=== PATIENT | female | born 1955 | race Hispanic/Latino ===

== ENCOUNTER 2022-04-27 11:40 | Inpatient (IN) | payer MEDICARE ==
[2022-04-27 12:27] LABS: #Eosinphils 0.6 10x3/uL (0.0-0.5); #Monocytes 0.4 10x3/uL (0.0-1.1); %Basophils 0.5 % (0.0-2.0); %Eosinophils 7.6 % (0.0-6.0); %Lymphocytes 17.3 % (18.0-47.0); %Monocytes 5.9 % (0.0-10.0); %Neutrophils 68.6 % (40.0-75.0); Hemoglobin 11.6 g/dL (12.0-15.5); Mean Corpuscular HGB CONC 32.1 g/dL (32.0-36.0); Mean Corpuscular Hemoglobin 27.8 pg (27.0-33.0); Mean Corpuscular Volume 86.4 fl (81.6-98.3); Mean Platelet Volume 11.5 fl (7.4-10.4); Platelet Count 236 10x3/uL (150-450); RBC Distribution Width 13.1 % (11.5-14.5); Red Blood Cell (RBC) Count 4.18 10x6/uL (3.90-5.03); White Blood Cell (WBC) Count 7.3 10x3/uL (3.5-10.5)
[2022-04-27] MEDS ORDERED: Nitroglycerin 2% Ointment 1 INCH/1 GM Packet ONE (12:28)
[2022-04-27] MEDS ORDERED: Aspirin Chewable 81 MG TAB ONE (12:28)
[2022-04-27 12:40] LABS: ALT (SGPT) 11 U/L (8-55); AST (SGOT) 19 U/L (5-34); Albumin 3.8 g/dL (3.4-4.8); Alkaline Phosphatase 111 U/L (40-110); Anion Gap 14 mmol/L (10-20); BUN (Urea Nitrogen) 13 mg/dL (9.8-20.1); Bilirubin, Total 0.7 mg/dL (0.2-1.2); Calc. Creatinine Clearance 0 mL/min (70-130); Calcium 8.9 mg/dL (7.8-10.44); Carbon Dioxide 25 mmol/L (23-31); Chloride 104 mmol/L (98-107); Estimated GFR 67; Globulin 2.5 g/dL (2.4-3.5); Glucose 190 mg/dL (80-115); Lipase 19 U/L (8-78); Potassium 4.7 mmol/L (3.5-5.1); Protein, Total 6.3 g/dL (5.8-8.1); Sodium 138 mmol/L (136-145)
[2022-04-27] MEDS ORDERED: Ondansetron ODT 4 MG TAB PO PRN (14:12)
[2022-04-27] MEDS ORDERED: Acetaminophen 650 MG Suppository PR PRN (14:12)
[2022-04-27] MEDS ORDERED: Ondansetron PF 4 MG/2 ML Vial IVP PRN (14:12)
[2022-04-27] MEDS ORDERED: Dextrose 50% Abboject 50 ML SYRINGE SLOW IVP PRN (14:14)
[2022-04-27] MEDS ORDERED: Dextrose 5% in Water 1,000 ML IV PRN (14:14)
[2022-04-27 15:49] LABS: Bilirubin Neg (Negative); Blood, Urine Negative (Negative); Clarity Sl. Cloudy (Clear); Glucose, Urine (Dipstick) Normal (Negative); Ketone, Urine Negative (Negative); Leukocyte Negative (Negative); Nitrite Positive (Negative); Protein, Urine (Dipstick) Negative (Neg-Trace); Urobilinogen Normal mg/dL (Less than 2); pH, Urine 6.5 (5.0-9.0)
[2022-04-27 15:53] LABS: Bacteria/HPF 3+ HPF (None Seen); RBC/HPF 0-3 HPF (0-3); Squamous Epithelial 0-3 HPF (0-3); WBC/HPF 0-3 HPF (0-3)
[2022-04-27 15:57] LABS: Troponin I Less than 0.010 ng/mL (< 0.028)
[2022-04-27 19:02] LABS: Troponin I Less than 0.010 ng/mL (< 0.028)
[2022-04-27 19:50] VITALS: BMI 35.2
[2022-04-27] MEDS: Insulin Regular 300 UNITS/3 ML VIAL SC PRN (21:40)
[2022-04-27] MEDS: Ezetimibe 10 MG TAB PO SCH (21:40)
[2022-04-27] MEDS: Atorvastatin Calcium 40 MG TAB PO SCH (21:40)
[2022-04-27] MEDS: Enoxaparin Sodium 80 MG/0.8 ML SYRINGE SC SCH (21:40)
[2022-04-28] MEDS: Insulin Regular 300 UNITS/3 ML VIAL SC PRN ×3 (05:39→20:48)
[2022-04-28 06:35] LABS: Anion Gap 12 mmol/L (10-20); BUN (Urea Nitrogen) 12 mg/dL (9.8-20.1); Calc. Creatinine Clearance 101 mL/min (70-130); Calcium 8.9 mg/dL (7.8-10.44); Carbon Dioxide 26 mmol/L (23-31); Cardiac Risk 3.5 (Less than 4.5); Chloride 106 mmol/L (98-107); Cholesterol 126 mg/dl (< 200 Desired); Estimated GFR 79; Glucose 152 mg/dL (80-115); HDL Cholesterol 36 mg/dL (>60 Neg Risk); LDL Cholesterol, Calculated 61 mg/dL; Sodium 140 mmol/L (136-145); Triglycerides 143 mg/dL (Less than 150)
[2022-04-28 06:50] LABS: #Eosinphils 0.6 10x3/uL (0.0-0.5); #Monocytes 0.4 10x3/uL (0.0-1.1); #Neutrophils 2.8 10x3/uL (1.5-8.4); %Basophils 0.6 % (0.0-2.0); %Eosinophils 10.7 % (0.0-6.0); %Lymphocytes 26.4 % (18.0-47.0); %Monocytes 8.2 % (0.0-10.0); %Neutrophils 53.9 % (40.0-75.0); Hemoglobin 11.8 g/dL (12.0-15.5); Mean Corpuscular HGB CONC 33.3 g/dL (32.0-36.0); Mean Corpuscular Hemoglobin 28.6 pg (27.0-33.0); Mean Corpuscular Volume 85.9 fl (81.6-98.3); Mean Platelet Volume 11.5 fl (7.4-10.4); Platelet Count 227 10x3/uL (150-450); RBC Distribution Width 13.2 % (11.5-14.5); Red Blood Cell (RBC) Count 4.12 10x6/uL (3.90-5.03); White Blood Cell (WBC) Count 5.2 10x3/uL (3.5-10.5)
[2022-04-28] MEDS: Clopidogrel Bisulfate 75 MG TAB PO SCH (10:03)
[2022-04-28] MEDS: Aspirin Chewable 81 MG TAB PO SCH (10:04)
[2022-04-28] MEDS: Enoxaparin Sodium 80 MG/0.8 ML SYRINGE SC SCH ×2 (10:04→20:38)
[2022-04-28] MEDS ORDERED: Communication Order-Pharmacy FS SCH (19:30)
[2022-04-28] MEDS: Atorvastatin Calcium 40 MG TAB PO SCH (20:38)
[2022-04-28] MEDS: Ezetimibe 10 MG TAB PO SCH (20:38)
[2022-04-29 05:18] LABS: #Eosinphils 0.6 10x3/uL (0.0-0.5); #Monocytes 0.6 10x3/uL (0.0-1.1); #Neutrophils 2.9 10x3/uL (1.5-8.4); %Basophils 0.5 % (0.0-2.0); %Eosinophils 9.9 % (0.0-6.0); %Lymphocytes 28.7 % (18.0-47.0); %Monocytes 10.3 % (0.0-10.0); %Neutrophils 50.3 % (40.0-75.0); Anion Gap 13 mmol/L (10-20); BUN (Urea Nitrogen) 12 mg/dL (9.8-20.1); Calc. Creatinine Clearance 94 mL/min (70-130); Calcium 9.2 mg/dL (7.8-10.44); Carbon Dioxide 26 mmol/L (23-31); Chloride 104 mmol/L (98-107); Estimated GFR 72; Glucose 184 mg/dL (80-115); Hemoglobin 12.4 g/dL (12.0-15.5); Magnesium 1.6 mg/dL (1.6-2.6); Mean Corpuscular HGB CONC 33.1 g/dL (32.0-36.0); Mean Corpuscular Hemoglobin 28.5 pg (27.0-33.0); Mean Corpuscular Volume 86.2 fl (81.6-98.3); Mean Platelet Volume 11.7 fl (7.4-10.4); Platelet Count 232 10x3/uL (150-450); Potassium 4.2 mmol/L (3.5-5.1); RBC Distribution Width 13.1 % (11.5-14.5); Red Blood Cell (RBC) Count 4.35 10x6/uL (3.90-5.03); Sodium 139 mmol/L (136-145); White Blood Cell (WBC) Count 5.8 10x3/uL (3.5-10.5)
[2022-04-29] MEDS: Clopidogrel Bisulfate 75 MG TAB PO SCH (06:24)
[2022-04-29] MEDS: Aspirin Chewable 81 MG TAB PO SCH (06:24)
[2022-04-29] MEDS: Sodium Chloride 0.9% 1,000 ML IV SCH ×3 (06:28→13:55)
[2022-04-29] MEDS ORDERED: Nitroglycerin 50 MG/250 ML BOT 0 ML ONE (07:42)
[2022-04-29] MEDS ORDERED: Heparin 10,000 UNITS/ 10 ML VIAL ONE (07:43)
[2022-04-29] MEDS ORDERED: Lidocaine 1% 20 ML MDV ONE ×2 (07:46→09:00)
[2022-04-29] MEDS ORDERED: Adenosine 6 MG/2 ML VIAL ONE (07:47)
[2022-04-29] MEDS ORDERED: Fentanyl 100 MCG/2 ML VIAL ONE (08:37)
[2022-04-29] MEDS ORDERED: Midazolam HCl 2 mg/2 ml Vial ONE (08:37)
[2022-04-29 08:48] LABS: Bilirubin Neg (Negative); Blood, Urine Negative (Negative); Glucose, Urine (Dipstick) 50 mg/dL (Negative); Ketone, Urine Negative (Negative); Leukocyte 25 (Negative); Nitrite Positive (Negative); Protein, Urine (Dipstick) Negative (Neg-Trace); Specific Gravity, Urine 1.005 (1.005-1.030); Urobilinogen Normal mg/dL (Less than 2)
[2022-04-29] MEDS ORDERED: hydrALAZINE 20 MG/ML VIAL ONE (08:54)
[2022-04-29 09:17] LABS: Clarity Slightly Cloudy (Clear)
[2022-04-29 09:20] LABS: Bacteria/HPF 4+ HPF (None Seen); RBC/HPF 0-3 HPF (0-3); Squamous Epithelial 0-3 HPF (0-3); WBC/HPF 0-3 HPF (0-3)
[2022-04-29 09:21] LABS: Urine Culture Reflex Yes Yes
[2022-04-29] MEDS ORDERED: Nitroglycerin 0.4 MG TAB (25 Tab Bottle) SL PRN (10:58)
[2022-04-29] MEDS ORDERED: Sodium Chloride 0.9% 200 ML IV PRN (10:58)
[2022-04-29] MEDS: Acetaminophen 325 MG TAB PO PRN (12:18)
[2022-04-29] MEDS: Acetaminophen/Codeine 30-300mg Tablet PO PRN ×2 (13:56→20:49)
[2022-04-29] MEDS ORDERED: Iopamidol 300 61% 100 ML VIAL FS ONE (13:58)
[2022-04-29] MEDS ORDERED: oxyCODONE 5 MG TAB PO SCH (15:30)
[2022-04-29] MEDS ORDERED: Phenazopyridine HCl 95 MG TAB PO SCH (20:15)
[2022-04-29] MEDS: Ezetimibe 10 MG TAB PO SCH (20:40)
[2022-04-29] MEDS: Atorvastatin Calcium 40 MG TAB PO SCH (20:40)
[2022-04-29] MEDS: Insulin Regular 300 UNITS/3 ML VIAL SC PRN (20:50)
[2022-04-29] MEDS: cefTRIAXone\\ROCEPHIN 1 GM in Sodium Chloride 0.9% 100 ML IVPB SCH (20:50)
[2022-04-30] MEDS: Sodium Chloride 0.9% 1,000 ML IV SCH ×2 (00:34→23:18)
[2022-04-30 05:16] LABS: %Lymphocytes 25.3 % (18.0-47.0); %Neutrophils 53.5 % (40.0-75.0); Hemoglobin 11.4 g/dL (12.0-15.5); Mean Corpuscular HGB CONC 32.8 g/dL (32.0-36.0); Mean Corpuscular Hemoglobin 28.4 pg (27.0-33.0); Mean Corpuscular Volume 86.8 fl (81.6-98.3); Mean Platelet Volume 11.8 fl (7.4-10.4); Platelet Count 219 10x3/uL (150-450); RBC Distribution Width 13.2 % (11.5-14.5); Red Blood Cell (RBC) Count 4.01 10x6/uL (3.90-5.03); White Blood Cell (WBC) Count 5.6 10x3/uL (3.5-10.5)
[2022-04-30 05:17] LABS: #Eosinphils 0.6 10x3/uL (0.0-0.5); #Monocytes 0.6 10x3/uL (0.0-1.1); %Basophils 0.5 % (0.0-2.0); %Eosinophils 10.3 % (0.0-6.0); Anion Gap 11 mmol/L (10-20); BUN (Urea Nitrogen) 15 mg/dL (9.8-20.1); Calc. Creatinine Clearance 84 mL/min (70-130); Calcium 8.5 mg/dL (7.8-10.44); Carbon Dioxide 26 mmol/L (23-31); Chloride 104 mmol/L (98-107); Estimated GFR 64; Glucose 236 mg/dL (80-115); Potassium 4.3 mmol/L (3.5-5.1); Sodium 137 mmol/L (136-145)
[2022-04-30 05:18] LABS: Prothrombin Time 10.4 sec (9.5-12.1)
[2022-04-30] MEDS: Aspirin Chewable 81 MG TAB PO SCH (05:52)
[2022-04-30] MEDS: Insulin Regular 300 UNITS/3 ML VIAL SC PRN ×2 (05:53→20:25)
[2022-04-30] MEDS: Phenazopyridine HCl 95 MG TAB PO SCH ×3 (08:51→18:25)
[2022-04-30] MEDS ORDERED: Polyethylene Glycol 3350 17 GM Packet PO PRN (10:48)
[2022-04-30] MEDS ORDERED: Gentamicin 80 MG/2 ML VIAL ONE (12:06)
[2022-04-30] MEDS ORDERED: CEFAZOLIN 1 GM VIAL ONE ×2 (12:06)
[2022-04-30] MEDS ORDERED: Lidocaine 1% 20 ML MDV ONE (12:07)
[2022-04-30] MEDS ORDERED: Fentanyl 100 MCG/2 ML VIAL ONE (13:03)
[2022-04-30] MEDS ORDERED: Midazolam HCl 2 mg/2 ml Vial ONE (13:03)
[2022-04-30] MEDS: cefTRIAXone\\ROCEPHIN 1 GM in Sodium Chloride 0.9% 100 ML IVPB SCH (20:23)
[2022-04-30] MEDS: Acetaminophen/Codeine 30-300mg Tablet PO PRN (20:24)
[2022-04-30] MEDS: Atorvastatin Calcium 40 MG TAB PO SCH (20:24)
[2022-04-30] MEDS: Ezetimibe 10 MG TAB PO SCH (20:24)
[2022-05-01 03:38] LABS: #Eosinphils 0.7 10x3/uL (0.0-0.5); #Monocytes 0.6 10x3/uL (0.0-1.1); #Neutrophils 2.9 10x3/uL (1.5-8.4); %Basophils 0.7 % (0.0-2.0); %Monocytes 9.7 % (0.0-10.0); %Neutrophils 48.3 % (40.0-75.0); Hemoglobin 11.2 g/dL (12.0-15.5); Mean Corpuscular Hemoglobin 27.9 pg (27.0-33.0); Mean Corpuscular Volume 87.1 fl (81.6-98.3); Mean Platelet Volume 11.6 fl (7.4-10.4); Platelet Count 224 10x3/uL (150-450); RBC Distribution Width 13.2 % (11.5-14.5); Red Blood Cell (RBC) Count 4.02 10x6/uL (3.90-5.03); White Blood Cell (WBC) Count 6.1 10x3/uL (3.5-10.5)
[2022-05-01 03:56] LABS: Anion Gap 10 mmol/L (10-20); BUN (Urea Nitrogen) 12 mg/dL (9.8-20.1); Calc. Creatinine Clearance 99 mL/min (70-130); Carbon Dioxide 27 mmol/L (23-31); Chloride 104 mmol/L (98-107); Estimated GFR 78; Glucose 206 mg/dL (80-115); Sodium 137 mmol/L (136-145)
[2022-05-01] MEDS: Phenazopyridine HCl 95 MG TAB PO SCH ×3 (09:21→17:30)
[2022-05-01] MEDS: Aspirin Chewable 81 MG TAB PO SCH (09:21)
[2022-05-01] MEDS: Insulin Regular 300 UNITS/3 ML VIAL SC PRN (17:30)
[2022-05-01] MEDS ORDERED: hydrOXYzine 25 MG TAB PO PRN (18:19)
[2022-05-01] MEDS: cefTRIAXone\\ROCEPHIN 1 GM in Sodium Chloride 0.9% 100 ML IVPB SCH (20:33)
[2022-05-01] MEDS: Acetaminophen 325 MG TAB PO PRN (20:34)
[2022-05-01] MEDS: Ezetimibe 10 MG TAB PO SCH (20:34)
[2022-05-01] MEDS: Atorvastatin Calcium 40 MG TAB PO SCH (20:34)
[2022-05-01] MEDS ORDERED: Lantus 1000 UNITS/10 ML VIAL SC SCH (21:00)
[2022-05-02 05:32] LABS: Anion Gap 12 mmol/L (10-20); BUN (Urea Nitrogen) 13 mg/dL (9.8-20.1); Calc. Creatinine Clearance 97 mL/min (70-130); Calcium 8.9 mg/dL (7.8-10.44); Carbon Dioxide 25 mmol/L (23-31); Chloride 104 mmol/L (98-107); Estimated GFR 75; Glucose 237 mg/dL (80-115); Potassium 4.2 mmol/L (3.5-5.1); Sodium 137 mmol/L (136-145)
[2022-05-02 05:52] LABS: #Basophils 0.1 10x3/uL (0.0-0.2); #Eosinphils 0.7 10x3/uL (0.0-0.5); #Monocytes 0.5 10x3/uL (0.0-1.1); %Basophils 1.1 % (0.0-2.0); %Eosinophils 12.3 % (0.0-6.0); %Lymphocytes 25.9 % (18.0-47.0); %Monocytes 8.1 % (0.0-10.0); %Neutrophils 52.1 % (40.0-75.0); Hemoglobin 11.5 g/dL (12.0-15.5); Mean Corpuscular HGB CONC 32.4 g/dL (32.0-36.0); Mean Corpuscular Hemoglobin 28.4 pg (27.0-33.0); Mean Corpuscular Volume 87.7 fl (81.6-98.3); Mean Platelet Volume 11.5 fl (7.4-10.4); Platelet Count 215 10x3/uL (150-450); RBC Distribution Width 13.1 % (11.5-14.5); Red Blood Cell (RBC) Count 4.05 10x6/uL (3.90-5.03); White Blood Cell (WBC) Count 5.7 10x3/uL (3.5-10.5)
[2022-05-02] MEDS: Phenazopyridine HCl 95 MG TAB PO SCH ×3 (08:07→17:55)
[2022-05-02] MEDS: PARoxetine 20 MG TAB PO SCH (08:09)
[2022-05-02] MEDS: Aspirin Chewable 81 MG TAB PO SCH (08:09)
[2022-05-02] MEDS ORDERED: CEFAZOLIN 1 GM VIAL ONE (10:19)
[2022-05-02] MEDS ORDERED: Gentamicin 80 MG/2 ML VIAL ONE (10:19)
[2022-05-02] MEDS ORDERED: Lidocaine 1% 20 ML MDV ONE (10:20)
[2022-05-02] MEDS ORDERED: Fentanyl 100 MCG/2 ML VIAL ONE (10:45)
[2022-05-02] MEDS ORDERED: Midazolam HCl 2 mg/2 ml Vial ONE ×2 (10:46→11:36)
[2022-05-02 13:21] VITALS: TEMP 98
[2022-05-02] MEDS: Acetaminophen/Codeine 30-300mg Tablet PO PRN ×2 (15:57→20:43)
[2022-05-02] MEDS: Insulin Regular 300 UNITS/3 ML VIAL SC PRN (17:53)
[2022-05-02] MEDS ORDERED: cefTRIAXone\\ROCEPHIN 1 GM VIAL ONE (20:29)
[2022-05-02] MEDS: cefTRIAXone\\ROCEPHIN 1 GM in Sodium Chloride 0.9% 100 ML IVPB SCH (20:41)
[2022-05-02] MEDS: Ezetimibe 10 MG TAB PO SCH (20:43)
[2022-05-02] MEDS: Atorvastatin Calcium 40 MG TAB PO SCH (20:43)
[2022-05-02 20:46] VITALS: BP 135/65
[2022-05-02] MEDS ORDERED: Lantus 1000 UNITS/10 ML VIAL SC SCH (21:00)
[2022-05-03] MEDS: Acetaminophen/Codeine 30-300mg Tablet PO PRN ×3 (00:59→09:55)
[2022-05-03] MEDS: Insulin Regular 300 UNITS/3 ML VIAL SC PRN (06:36)
[2022-05-03] MEDS: PARoxetine 20 MG TAB PO SCH (09:54)
[2022-05-03] MEDS: Phenazopyridine HCl 95 MG TAB PO SCH (09:54)
[2022-05-03] MEDS: Aspirin Chewable 81 MG TAB PO SCH (09:54)
== END 2022-05-03 10:50 | disposition home or self-care (01) | DRG 243 ==
LOC: CSHERS 11:40 → CSHTELE 17:08
PROVIDERS: ADMIT Family Medicine; ATTEND Family Medicine
PROC: 4A023N7 Measurement of Cardiac Sampling and Pressure, Left Heart, Percutaneous Approach (ICD-10-PCS; 2022-04-29)
PROC: B2111ZZ Fluoroscopy of Multiple Coronary Arteries using Low Osmolar Contrast (ICD-10-PCS; 2022-04-29)
PROC: B2151ZZ Fluoroscopy of Left Heart using Low Osmolar Contrast (ICD-10-PCS; 2022-04-29)
PROC: 0JH606Z Insertion of Pacemaker, Dual Chamber into Chest Subcutaneous Tissue and Fascia, Open Approach (ICD-10-PCS; principal; 2022-05-02)
PROC: 02H63JZ Insertion of Pacemaker Lead into Right Atrium, Percutaneous Approach (ICD-10-PCS; 2022-05-02)
PROC: 02HK3JZ Insertion of Pacemaker Lead into Right Ventricle, Percutaneous Approach (ICD-10-PCS; 2022-05-02)
DX: I44.1 Atrioventricular block, second degree (principal); I25.110 Atherosclerotic heart disease of native coronary artery with unstable angina pectoris; N39.0 Urinary tract infection, site not specified; I10 Essential (primary) hypertension; E78.5 Hyperlipidemia, unspecified; E11.9 Type 2 diabetes mellitus without complications; K21.9 Gastro-esophageal reflux disease without esophagitis; B96.20 Unspecified Escherichia coli [E. coli] as the cause of diseases classified elsewhere; F41.9 Anxiety disorder, unspecified; Z20.822 Contact with and (suspected) exposure to COVID-19; Z95.5 Presence of coronary angioplasty implant and graft; Z90.49 Acquired absence of other specified parts of digestive tract; Z90.710 Acquired absence of both cervix and uterus
CPT/HCPCS: 33208; 36415; 36416; 71045; 80048; 80053; 80061; 81001; 81003; 81015; 83690; 83735; 83880; 84484; 85025; 85610; 87077; 87086; 87186; 93005; 93010; 93306; 93458; 94760; 97139; 99152; 99153; C1760; C1769; C1785; C1898; J0153; J0360; J0690; J0696; J1580; J1644; J1650; J1815; J2250; J2405; J3010; J3490; J7050; Q9967; U0003; U0005